=== PATIENT | male | born 1940 | race Caucasian/White ===

== ENCOUNTER 2016-07-08 16:10 | Emergency (ER) | payer MEDICARE ==
[~2016-07-08] VITALS: Ht 193 cm; Wt 78.7 kg
[~2016-07-08 16:10] MED LIST: 1-ME1LIQ PO; AVOD0.5C PO; BYST5TAB2 PO; LISI10TA PO; LORT5TAB PO; PRIL40CA PO; RAPA8CAP PO
[2016-07-08 16:23] VITALS: BP 121/68; PULSE 58; RESP 16; TEMP 97.5; O2SAT 99
[2016-07-08] MEDS ORDERED: ALFU10TA2 PO (16:40)
[2016-07-08] MEDS ORDERED: BYST5TAB2 PO (16:40)
[2016-07-08] MEDS ORDERED: AMLO10TA2 PO (16:40)
[2016-07-08] MEDS ORDERED: HYDR12.56 PO (16:40)
--- NOTE | 2016-07-08 16:58 | PD ---
HPI Chief Complaint: Laceration/Skin Injury Time Seen by Provider: 16:49 Travel History International Travel<30 days: No Contact w/Intl Traveler<30days: No Traveled to known affect area: No History of Present Illness HPI 76-year-old male presents to the emergency room for evaluation of a superficial skin tear to the right posterior forearm that occurred just prior to arrival. Patient states he brushed up against his kitchen cabinet corner which caused the tear. It bled a small to moderate amount and he applied [id number] wound seal and pressure which got the bleeding to stop. Denies any significant pain. Last tetanus was less than 5 years ago. PFSH Past Medical History Diminished Hearing: No Hypertension: Yes Immunizations Current: Yes Influenza Vaccination: Yes Past Surgical History Cholecystectomy: Yes Social History Alcohol Use: Yes (GLASS OF WINE PER DAY) Tobacco Use: No Substance Use: No Allergies-Medications (Allergen,Severity, Reaction): Coded Allergies: CHANDRA Inhibitors (Verified Allergy, Severe, ANGIOEDEMA, 07/08/16) Reported Meds & Prescriptions Reported Meds & Active Scripts Active Reported Alfuzosin ER 24 HR 10 Mg Tab 10 Mg PO DAILY Bystolic (Nebivolol) 5 Mg Tab 5 Mg PO DAILY Hydrochlorothiazide 12.5 Mg Tab 12.5 Mg PO DAILY Amlodipine (Amlodipine Besylate) 10 Mg Tab 10 Mg PO DAILY Review of Systems Except as stated in HPI: all other systems reviewed are Neg Physical Exam Narrative GENERAL: Well-nourished, well-developed male in no acute distress. Afebrile. Ambulatory. SKIN: Warm and dry. There is a 3.5 cm superficial skin tear to the right posterior forearm. Well approximated. No bleeding. Nontender. No erythema, drainage, or lymphangitis. HEAD: Normocephalic. EYES: No scleral icterus. No injection or drainage. NECK: Supple, trachea midline. No JVD or lymphadenopathy. Data Data Last Documented VS Vital Signs Date Time Temp Pulse Resp B/P Pulse Ox O2 Delivery O2 Flow Rate FiO2 07/08/16 16:23 97.5 58 16 121/68 99 MDM Medical Decision Making Medical Screen Exam Complete: Yes Emergency Medical Condition: Yes Medical Record Reviewed: Yes Differential Diagnosis Skin tear versus laceration versus abrasion Narrative Course 76-year-old male presents to the emergency room for evaluation of skin tear to the right posterior forearm that occurred just prior to arrival. Patient cut himself on cabinet corner. Denies any other injuries. Last tetanus was less than 5 years ago. Physical exam reveals a well-approximated, nonbleeding skin tear with residual wound seal. Wound was thoroughly cleansed and repaired using Steri-Strips and glue. Patient discharged with wound care instructions and told to follow up with a primary care physician or return for worsening symptoms. He understands and agrees to plan. Diagnosis Primary Impression: Skin tear of right forearm without complication Qualified Code: S51.801A - Skin tear of right forearm without complication, initial encounter Referrals: Primary Care Physician Patient Instructions: General Instructions, Skin Tear (ED) Additional Instructions: Keep wound clean and dry. Do not pick at glue or Steri-Strips, they will fall off on their own. Follow-up with the primary care physician. Return to the emergency room for worsening symptoms such as drainage, increasing redness, worsening pain, or increased warmth. Disposition: 01 DISCHARGE HOME Condition: Stable Polina Conde Jul 08, 2016 16:58
== END 2016-07-08 17:16 | disposition home or self-care (01) ==
LOC: PHEFT 16:10
DX: S51.811A Laceration without foreign body of right forearm, initial encounter (principal); I10 Essential (primary) hypertension; W22.8XXA Striking against or struck by other objects, initial encounter; Y93.9 Activity, unspecified; Y92.000 Kitchen of unspecified non-institutional (private) residence as the place of occurrence of the external cause
CPT/HCPCS: 99283

== ENCOUNTER 2017-02-27 10:52 | Emergency (ER) | payer MEDICARE ==
[~2017-02-27 10:52] MED LIST changes: -1-ME1LIQ PO; +ALFU10TA2 PO; +AMLO10TA2 PO; -AVOD0.5C PO; +HYDR12.56 PO; -LISI10TA PO; -LORT5TAB PO; -PRIL40CA PO; -RAPA8CAP PO
[2017-02-27 10:57] VITALS: BP 123/58; PULSE 64; RESP 20; TEMP 97.2; O2SAT 97
[2017-02-27] MEDS ORDERED: CEPH-460 PO (11:37)
--- NOTE | 2017-02-27 11:37 | PD ---
HPI Chief Complaint: Skin Problem Time Seen by Provider: 11:21 Travel History International Travel<30 days: No Contact w/Intl Traveler<30days: No Traveled to known affect area: No History of Present Illness HPI 77-year-old male presents to the emergency room for evaluation of foreign body to his left forearm that he first noticed earlier today. Patient was doing yard work when he reached into a pile of brush and felt a sharp pain in his left arm. He states it feels like it is deep but he could not remove it. Pain is significant especially when he touches the area. Denies any chronic medical problems other than hypertension. Last tetanus was 4 years ago. PFSH Past Medical History Diminished Hearing: No Hypertension: Yes Immunizations Current: Yes Tetanus Vaccination: < 5 Years Past Surgical History Cholecystectomy: Yes Social History Alcohol Use: Yes (GLASS OF WINE PER DAY) Tobacco Use: No Substance Use: No Allergies-Medications (Allergen,Severity, Reaction): Coded Allergies: benazepril (Unverified Allergy, Severe, ANGIOEDEMA, 01/28/17) captopril (Unverified Allergy, Severe, ANGIOEDEMA, 01/28/17) enalaprilat (Unverified Allergy, Severe, ANGIOEDEMA, 01/28/17) fosinopril (Unverified Allergy, Severe, ANGIOEDEMA, 01/28/17) lisinopril (Unverified Allergy, Severe, ANGIOEDEMA, 01/28/17) quinapril (Unverified Allergy, Severe, ANGIOEDEMA, 01/28/17) Reported Meds & Prescriptions Reported Meds & Active Scripts Active Reported Alfuzosin ER 24 HR 10 Mg Tab 10 Mg PO DAILY Bystolic (Nebivolol) 5 Mg Tab 5 Mg PO DAILY Review of Systems Except as stated in HPI: all other systems reviewed are Neg Physical Exam Narrative GENERAL: Well-nourished, well-developed male in no acute distress. Afebrile. Ambulatory. SKIN: Focused skin assessment warm/dry. There is a 1 mm puncture wound to the left, middle volar forearm. No lymphangitis. No drainage, induration, or erythema. HEAD: Normocephalic. EYES: No scleral icterus. No injection or drainage. NECK: Supple, trachea midline. No JVD or lymphadenopathy. CARDIOVASCULAR: Regular rate and rhythm without murmurs, gallops, or rubs. RESPIRATORY: Breath sounds equal bilaterally. No accessory muscle use. MUSCULOSKELETAL: No cyanosis, or edema. Full range motion of left upper arm. 2 + radial pulse. Data Data Last Documented VS Vital Signs Date Time Temp Pulse Resp B/P (MAP) Pulse Ox O2 Delivery O2 Flow Rate FiO2 02/27/17 10:57 97.2 64 20 123/58 (79) 97 MDM Medical Decision Making Medical Screen Exam Complete: Yes Emergency Medical Condition: Yes Medical Record Reviewed: Yes Differential Diagnosis Puncture wound, foreign body, abscess Narrative Course 77-year-old male presents to the emergency room for evaluation of foreign body to his left forearm that occurred earlier today. Patient was removing brush from his yard when he felt a sharp stabbing pain. He tried to remove the splinter but was unable to. Patient reports moderate pain over the splinter but no other significant pain or loss of range of motion. Left upper extremity is neurovascularly intact. Physical exam reveals a puncture wound with a black , hard foreign body just below the skin. The foreign body was gently pushed out and grabbed with forceps. It was a 2 cm wooden foreign body completely intact. Because this is a puncture wound, patient will be discharged with prescription for Keflex and told to follow up with a primary care physician or return for worsening symptoms. He understands and agrees to plan. Diagnosis Primary Impression: Soft tissues foreign body Referrals: Primary Care Physician Additional Instructions: Rest and drink plenty of fluids. Take Keflex as directed, until gone. Follow-up with a primary care physician. Return to the emergency room for worsening symptoms. Disposition: 01 DISCHARGE HOME Condition: Stable Polina Conde Feb 27, 2017 11:37
== END 2017-02-27 11:48 | disposition home or self-care (01) ==
LOC: PHEFT 10:52
DX: S51.842A Puncture wound with foreign body of left forearm, initial encounter (principal); W45.8XXA Other foreign body or object entering through skin, initial encounter; Y93.H2 Activity, gardening and landscaping; Y92.007 Garden or yard of unspecified non-institutional (private) residence as the place of occurrence of the external cause
CPT/HCPCS: 10120